=== PATIENT | female | born 1960 | race Caucasian/White ===

== ENCOUNTER 2022-10-21 10:23 | Day surgery (SDC) | payer OTHER ==
[~2022-10-21] VITALS: Ht 165.1 cm; Wt 82.7 kg
[~2022-10-21 10:23] MED LIST: CIPR500 PO; LEVSOD125; ZOLP5 PO; [UNRECOGNIZED DRUG - REMARK]
[2022-10-21] MEDS ORDERED: ZOCOR20 MG (11:02)
--- NOTE | 2022-10-21 13:10 | NUR ---
10/21/22 1310 Varsha Robertson OFFERED PT APPLESAUCE SO THAT SHE COULD HAVE A PAIN PILL BEFORE SHE LEAVES TODAY. EXPLAINED THAT IT MIGHT BE A GOOD IDEA TO HAVE SOME LONGER ACTING PAIN MEDICATION ON BOARD BEFORE DISCHARGE, BUT PT STATED THAT SHE WASN'T HUNGRY, AND MIGHT NOT EVEN BE WORRIED ABOUT HAVING A PILL BEFORE SHE LEAVES TODAY.
[2022-10-21 13:30] VITALS: BP 134/100
== END 2022-10-21 13:57 | disposition home or self-care (01) ==
LOC: ORSCSDS 10:23
PROVIDERS: Orthopaedic Surgery
PROC: 01N50ZZ Release Median Nerve, Open Approach (ICD-10-PCS; principal; 2022-10-21 12:00)
DX: G56.03 Carpal tunnel syndrome, bilateral upper limbs (principal); E03.9 Hypothyroidism, unspecified; E78.5 Hyperlipidemia, unspecified; G62.9 Polyneuropathy, unspecified; Z79.899 Other long term (current) drug therapy
CPT/HCPCS: A9270; J0690; J1885; J2001; J2250; J2704; J3010; J7120